=== PATIENT | female | born 1950 | race Caucasian/White ===

== ENCOUNTER → 2017-07-08 | Outpatient (CLI) | payer MEDICARE, OTHER | END | disposition home or self-care (01) | LOC: US 08:55 | DX: I10 Essential (primary) hypertension (principal); I73.9 Peripheral vascular disease, unspecified; J44.9 Chronic obstructive pulmonary disease, unspecified; R53.83 Other fatigue; Z87.891 Personal history of nicotine dependence | CPT/HCPCS: 93306; 93925 ==

== ENCOUNTER → 2019-11-01 | Outpatient (CLI) | payer MEDICARE, OTHER ==
--- NOTE | 2019-11-01 16:11 | KCIC ---
EXAM: Chest, 2 views. HISTORY: Asthma. COMPARISON: None. FINDINGS: 2 views of the chest are obtained. There is no infiltrate, pleural effusion or pneumothorax. The heart is normal in size. There are right axillary clips. IMPRESSION: No acute pulmonary finding. Electronically signed by: Julieta Cerda MD (11/01/2019 4:08 PM) [email or web address]
== END | disposition home or self-care (01) ==
LOC: KCIC 14:34
PROVIDERS: ATTEND Nurse Practitioner Family
DX: J45.901 Unspecified asthma with (acute) exacerbation (principal)
CPT/HCPCS: 71046